=== PATIENT | male | born 1945 | race Caucasian/White ===

== ENCOUNTER 2019-05-27 08:26 | Emergency (ER) | payer MEDICARE ==
[~2019-05-27] VITALS: Ht 182.9 cm; Wt 73.4 kg
[2019-05-27 08:59] LABS: ABSOLUTE BASOPHILS 0.1 thou/uL (0.0-0.2); ABSOLUTE EOSINOPHILS 0.3 thou/uL (0.0-0.7); ABSOLUTE LYMPHOCYTES 1.7 thou/uL (0.8-5.3); ABSOLUTE MONOCYTES 0.5 thou/uL (0.0-1.2); ABSOLUTE NEUTROPHILS 4.5 thou/uL (1.6-8.1); BASOPHILS 1.2 %; HEMATOCRIT 42.7 % (42.0-52.0); HEMOGLOBIN 14.5 gm/dL (14.0-18.0); LYMPHOCYTES 24.8 %; MCH 30.4 pg (26.0-34.0); MCV 89.2 fL (80.0-100.0); MONOCYTES 6.6 %; MPV 6.8 fl. (7.2-11.1); NUCLEATED RBCS 0 /100WBC; PLATELET COUNT* 191 thou/uL (150-400); POLYS 63.4 %; RBC 4.79 mil/uL (4.50-6.00); RDW-CV 15.7 % (10.5-14.5)
[2019-05-27] MEDS ORDERED: CARVEDILOL12.5 MG PO (09:16)
[2019-05-27] MEDS ORDERED: AMIODARONE HCL400 MG PO (09:16)
[2019-05-27] MEDS ORDERED: KEPPRA1000 MG PO (09:16)
[2019-05-27] MEDS ORDERED: VITAMIN B-1100 M1 PO (09:17)
[2019-05-27] MEDS ORDERED: FOLIC ACID1 MG PO (09:17)
[2019-05-27 09:21] LABS: CALCIUM 8.6 mg/dL (8.5-10.1); CREATININE 1.1 mg/dL (0.6-1.3)
[2019-05-27 09:25] LABS: ALBUMIN 3.7 g/dL (3.4-5.0); TOTAL BILIRUBIN 0.7 mg/dL (<0.1-1.0); TOTAL PROTEIN 7.2 g/dL (6.4-8.2)
[2019-05-27 09:52] LABS: APTT 27.8 Seconds (25.0-31.3); PROTIME 10.7 Seconds (9.20-11.50)
--- NOTE | 2019-05-27 12:38 | EKG ---
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: : 1945 Requested By: Vy Daugherty Order Number: [id number] MD: Topher Marcelino Measurements Intervals [place] Rate: 68 P: 38 GA: 197 QRS: -38 QRSD: 107 T: -7 QT: 416 QTc: 443 Interpretive Statements Sinus rhythm Left ventricular hypertrophy Borderline T abnormalities, lateral leads No previous ECG available for comparison Electronically Signed On 05-27-2019 12:37:35 WHARF LABORER by Topher Marcelino [email or web address] <ELECTRONICALLY SIGNED> By: Topher Marcelino MD, [facility] 05/27/19 1237 0909 8 Topher Marcelino MD, FACC /EPI
[2019-05-27 13:06] VITALS: BP 171/103
--- NOTE | 2019-05-27 17:20 | EKG ---
[place] [address] ELECTROCARDIOGRAM REPORT Name: BAY CLEVELAND [id number] Admission: 05/27/19 Attend Phys: Discharge: 05/27/19 Date of : 49 Report #: [id number] THIS REPORT FOR: //name// [facility] ED Test Date: 2019-05-27 Test Time: 13:05:34 Pat Name: BAY CLEVELAND Department: Room: Gender: M Buccaro: TOM : 1945 Requested By: Vy Daugherty Order Number: [id number] MD: Zhang Toussaint Measurements Intervals [place] Rate: 76 P: 39 NH: 204 QRS: -37 QRSD: 111 T: 39 QT: 427 QTc: 481 Interpretive Statements Sinus rhythm Ventricular premature complex Left ventricular hypertrophy Borderline prolonged QT interval Compared to ECG 05/27/2019 09:09:27 Ventricular premature complex(es) now present Electronically Signed On 05-27-2019 17:19:37 STATIONARY ENGINEER by Zhang Toussaint [email or web address] <ELECTRONICALLY SIGNED> By: Zhang Toussaint MD, [facility] 05/27/19 1719 1305 1305 Zhang Toussaint MD, FAC /EPI
--- NOTE | 2019-06-07 11:51 | CON ---
[address] [address] CONSULTATION Name: BAY CLEVELAND Room: [facility] SHEILA Gutierres#: [id number] Admission: 05/27/19 Attend Phys: Discharge: 05/27/19 Date of : 49 Report #: [id number] THIS REPORT FOR: //name// CC: Chanel Daugherty DATE OF SERVICE: 05/27/2019 HISTORY OF PRESENT ILLNESS: This is a 73-year-old male patient who was evaluated by me as a stroke protocol. The provides history. She gives a history that the patient was sitting. He went limp and did not fall down from the chair and had a jerking movement on the left side. The patient has a pretty involved history. He was in . He developed subacute bacterial endocarditis. Subsequently, he bled into the brain. They did not do any surgery. They did not do any coiling. He may have had another bleed later on. He became paralyzed on the left side. Then, he made a reasonable recovery, it looks like. After the episode today, he has been weak on the left side and he has some nystagmus. He was on Keppra, but he has not taken the morning dose of Keppra yet. REVIEW OF SYSTEMS: Indicated that this patient had a pretty eventful 2019 as far as medical problem is concerned. This patient first developed subacute bacterial endocarditis. Then, he developed mycotic aneurysm. Then, he developed intracerebral bleed. Then, he had petit mal seizure. Then he had a grand mal seizure. Then, he was put on Keppra and he continued to be on Keppra. One of his valve was repaired and he was put on Coumadin for some time, but subsequently Coumadin was discontinued. A 14-point review of system was carried out from the and this was his relevant 14-point review of system. PAST MEDICAL HISTORY: Positive for intracranial bleed. FAMILY HISTORY: Negative for any early age stroke. SOCIAL HISTORY: He is . His was here and she provided most of the history. PHYSICAL EXAMINATION: Limited. He was not much responsive. He can open his eyes. He did not follow commands for me. His speech was not understandable. He did not move the left side. He moved the right side. He is looking towards the left. He is a well-developed individual. He does not have any dysmorphic features of eyes, ears and face. His blood pressure is 171/103, respiration is 16, pulse is 80, temperature is 98.8. He was not in any respiratory distress. His pulses are palpable.. LABORATORY DATA: His WBC count is 7.0 and sodium and potassium is normal. He underwent a CT of the head and subsequently underwent [place] [address] CONSULTATION Name: BAY CLEVELAND Room: [facility] Nenita#: [id number] Admission: 05/27/19 Attend Phys: Discharge: 05/27/19 Date of : 49 Report #: [id number] any blood clot. IMPRESSION: It would appear that this patient had a seizure. He has a prior set up for seizure because of his bleed. He does have a prior history of seizure. His dose was increased to 1250 p.o. b.i.d. He may have to be on some stronger anticonvulsant and just Keppra, which is on. The problem is the says that [facility] is not part of the network. She wanted the patient to be transferred to . I told her the potential complication which can occur and she understands and she wants this to be there and I think that is reasonable. I talked to Emergency Room physician and told her to give IV Keppra since he has not taken that dose today. I will not start him on any Vimpat or any other medication here. From all the workup we have done, there is no evidence for cerebrovascular accident. Even if it is cerebrovascular accident, he is not a candidate for TPA because of prior bleed and he is not a candidate for thrombectomy because no thrombus has been found. All of it was discussed with the in detail. Thank you very much for this referral. <ELECTRONICALLY SIGNED> By: Tyrell Snow MD 06/07/19 1151 99 [id number] Snow MD /nt
== END 2019-05-27 13:06 | disposition short-term general hospital (02) ==
LOC: M.ERS 08:26
PROVIDERS: Personal Emergency Response Attendant
DX: I63.9 Cerebral infarction, unspecified (principal); R56.9 Unspecified convulsions

== ENCOUNTER 2020-02-27 08:16 | Emergency (ER) | payer MEDICARE ==
[~2020-02-27] VITALS: Ht 182.9 cm; Wt 72.1 kg
[~2020-02-27 08:16] MED LIST: AMIODARONE HCL400 MG PO; CARVEDILOL12.5 MG PO; FOLIC ACID1 MG PO; KEPPRA1000 MG PO; VITAMIN B-1100 M1 PO
[2020-02-27] MEDS ORDERED: CARVEDILOL25 MG PO (09:04)
[2020-02-27] MEDS ORDERED: PACERONE200 MG PO (09:04)
[2020-02-27] MEDS ORDERED: KEPPRA1000 MG PO (09:05)
[2020-02-27] MEDS ORDERED: REMERON15 M2 PO (09:05)
[2020-02-27] MEDS ORDERED: LISINOPRIL20 MG PO (09:05)
[2020-02-27] MEDS ORDERED: ZOCOR 20 MG TAB20 M1 PO (09:06)
[2020-02-27] MEDS ORDERED: PROZAC20 MG PO (09:06)
[2020-02-27] MEDS ORDERED: FLOMAX0.4 MG PO (09:06)
[2020-02-27 09:21] LABS: ABSOLUTE BASOPHILS 0.1 thou/uL (0.0-0.2); ABSOLUTE EOSINOPHILS 0.2 thou/uL (0.0-0.7); ABSOLUTE LYMPHOCYTES 1.2 thou/uL (0.8-5.3); ABSOLUTE MONOCYTES 0.3 thou/uL (0.0-1.2); ABSOLUTE NEUTROPHILS 5.4 thou/uL (1.6-8.1); BASOPHILS 0.8 %; EOSINOPHILS 2.6 %; HEMOGLOBIN 14.5 gm/dL (14.0-18.0); MCHC 35.2 g/dL (28.0-37.0); MCV 93.7 fL (80.0-100.0); MONOCYTES 4.7 %; MPV 6.4 fl. (7.2-11.1); NUCLEATED RBCS 0 /100WBC; PLATELET COUNT* 191 thou/uL (150-400); POLYS 74.9 %; RBC 4.38 mil/uL (4.50-6.00); WBC 7.2 thou/uL (4.0-11.0)
[2020-02-27 09:31] LABS: CALCIUM 8.7 mg/dL (8.5-10.1); CREATININE 1.1 mg/dL (0.6-1.3); POTASSIUM 4.2 mmol/L (3.5-5.1)
[2020-02-27 09:32] LABS: PROTIME 10.7 Seconds (9.20-11.50)
[2020-02-27 09:36] LABS: TOTAL BILIRUBIN 0.9 mg/dL (<0.1-1.0); TOTAL PROTEIN 7.3 g/dL (6.4-8.2)
[2020-02-27 10:05] VITALS: BP 142/79
--- NOTE | 2020-02-28 09:35 | EKG ---
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: : 1945 Requested By: Michael Shi Order Number: [id number] MD: Man Treadwell Measurements Intervals [place] Rate: 72 P: 27 CA: 234 QRS: -45 QRSD: 128 T: 80 QT: 386 QTc: 423 Interpretive Statements Sinus rhythm Prolonged CA interval inferior infarction old anterior infarction old Compared to ECG 05/27/2019 13:05:34 First degree AV block now present Ventricular premature complex(es) no longer present Electronically Signed On 02-28-2020 9:34:58 CDT by Man Treadwell [email or web address] <ELECTRONICALLY SIGNED> By: Man Treadwell MD, FACC 02/28/20 0934 0 0 Man Treadwell MD, [facility]IN [facility] /EPI
== END 2020-02-27 10:25 | disposition short-term general hospital (02) ==
LOC: M.ERS 08:16
PROVIDERS: Emergency Medicine
DX: S06.300A Unspecified focal traumatic brain injury without loss of consciousness, initial encounter (principal); Z20.828 Contact with and (suspected) exposure to other viral communicable diseases; Z86.73 Personal history of transient ischemic attack (TIA), and cerebral infarction without residual deficits; X58.XXXA Exposure to other specified factors, initial encounter; Y93.89 Activity, other specified; Y92.89 Other specified places as the place of occurrence of the external cause; Y99.8 Other external cause status

== ENCOUNTER 2020-09-27 10:48 | Inpatient (IN) | payer MEDICARE ==
[~2020-09-27] VITALS: Ht 188 cm; Wt 75.7 kg
[2020-09-27] VITALS (11 sets, daily range): BP systolic 82–179; BP diastolic 42–112
--- NOTE | ~2020-09-27 | CON ---
[address] [address] CONSULTATION Name: BAY CLEVELAND Room: [address] IN M.R.#: [id number] Admission: 09/27/20 Attend Phys: Rohan Sheets Discharge: Date of : 49 Report #: [id number] THIS REPORT FOR: cc: Chanel Argueta MD, Emily G. MD Khosla,Tyrell Post MD ~ DOC #: [id number] Tyrell Snow MD DATE OF CONSULTATION: 09/27/2020 HISTORY OF PRESENT ILLNESS: This is a 74-year-old male patient with a complicated history who was seen in emergency room and I discussed the patient multiple times with the emergency room physician. I talked to the nurse looking after this patient. I had a long discussion with the patient's . I went and reviewed the patient's scanning with radiologist and I talked to MRI as well as EEG. The history I get in this patient is that he had a sudden onset of the symptoms that he cannot speak. This happened suddenly. He has some tremor in the right upper extremity and he developed pretty significant shaking in the left upper extremity during this episode. He had a gaze preference towards the left when he came in, but by the time I saw him, he was intubated and he is on a vent. Before seeing him, I talked to multiple peoples including the radiologist. I have tried to see him earlier also, but he was gone for a CT angiogram and therefore, I talked to other people and saw him after he was intubated. His history is complicated. He had subacute bacterial endocarditis, but he was in [facility]. I do not have any records from there and I have asked the emergency room physician and he is trying to get those records from the [facility]. This patient had an intracerebral bleed on the right side and the second intracerebral bleed on the left side. It is not clear what the cause of the bleed were on either side. This happened in relation to subacute endocarditis. He was in atrial fibrillation at that time and he has some device in his heart and MRI does not know if it is compatible with MRI or not. I suspect he may have had that device put in because they may have considered that he is too high risk for chronic anticoagulation. His memory initially was okay, but from the last several weeks to months, his memory is progressively decreasing according to his . Because of the time sensitive condition, that is all the history I could get. The patient's examination was limited, but his pupils are asymmetrical. think it is new. I can tell anything further because this patient is intubated now and he is completely unresponsive. His blood pressure is somewhat high like 170-180. Multiple things were considered in this patient. We considered the diagnosis of stroke and I considered TPA, but this patient has [place] [address] CONSULTATION Name: BAY CLEVELAND Room: [address] IN [facility].#: [id number] Admission: 09/27/20 Attend Phys: Rohan Sheets Discharge: Date of : 49 Report #: [id number] by history, intracerebral hemorrhage, even one is a lifelong contraindication for TPA. I still discussed that with the patient's and offered her that, but ultimately it was her decision not to give TPA and I agree with it because he had two bleeds, which are lifetime contraindication for TPA. We will try to see if he is a thrombectomy candidate, but I reviewed CT angiogram with the radiologist and there is no thrombus. There is no embolus, though he is not an interventional candidate. Then, I ordered a stat MRI and I talked to them. They were going to do that in spite of the patient's intubation, but he has some device in his heart and they have talked to the radiologist and until they can find out that it is compatible with MRI, they will not do an MRI and we have to hold that MRI. I talked to water treatment technician asked him to do this EEG stat on him to see if we can chicken picker some seizure activity. I asked the ER doctor to go and give Keppra 1000 mg to this gentleman. I discussed the code status with the patient's . He has extensive strokes in the brain. He may have had another stroke or seizure and his quality of the life was deteriorating even before. She said she wants to keep him full code for the time being, but she also says that I will keep him full code only once. I am not sure what she means by that, but to me it looks like she wants to keep him full code for a little while and if he does not show any improvement, then she will make it no code. I spent more than 70 minutes of time taking care of this patient today and majority was spent counseling and coordinating as summarized above. We will see the patient again after the EEG. MD YOUSIF Chin/BAKARI By: 1302 1325Tyrell Snow MD /nt
--- NOTE | ~2020-09-27 | EEG ---
[facility] [address] [place] [address] EEG STUDY REPORT Name: BAY CLEVELAND Room: [address] IN M.R.#: [id number] Admission: 09/27/20 Attend Phys: Rohan Sheets Discharge: Date of : 49 Report #: [id number] THIS REPORT FOR: cc: Chanel Argueta MD, Emily G. MD Khosla,Tyrell Post MD ~ DOC #: [id number] Tyrell Snow MD DATE OF SERVICE: 09/27/2020 This patient's EEG is being done to evaluate the patient for seizure. EEG was done by placing the electrodes by standard 10-20 system of electrode placement. Both referential and sequential montages were used for recording. Background activity in this patient's EEG is up to 8-9 Hz and 20 microvolt. Photic stimulation is unremarkable. The patient is sedated on propofol. No active epileptiform activity was noticed during this record. IMPRESSION: This patient's EEG is intermixed with moderate amount of slowing. There is a nonspecific finding, which can occur with dementia, encephalopathy, effect of psychotropic medication, etc. Thank you very much for this referral and if you have any questions, please feel free to contact me. Tyrell Snow MD PK/ANI By: 1703 1730Tyrell Snow MD /jackeline
[~2020-09-27 10:48] MED LIST changes: +CARVEDILOL25 MG PO; +FLOMAX0.4 MG PO; +LISINOPRIL20 MG PO; +PACERONE200 MG PO; +PROZAC20 MG PO; +REMERON15 M2 PO; +ZOCOR 20 MG TAB20 M1 PO
[2020-09-27 11:33] LABS: HEMATOCRIT 43.9 % (42.0-52.0); HEMOGLOBIN 14.8 gm/dL (14.0-18.0); MCH 32.4 pg (26.0-34.0); MCHC 33.8 g/dL (28.0-37.0); MCV 95.9 fL (80.0-100.0); MPV 6.5 fl. (7.2-11.1); RBC 4.58 mil/uL (4.50-6.00); RDW-CV 13.5 % (10.5-14.5); WBC 8.5 thou/uL (4.0-11.0)
[2020-09-27 11:38] LABS: CALCIUM 8.8 mg/dL (8.5-10.1); CREATININE 1.1 mg/dL (0.6-1.3); POTASSIUM 3.9 mmol/L (3.5-5.1)
[2020-09-27 11:43] LABS: ALBUMIN 4.1 g/dL (3.4-5.0); TOTAL BILIRUBIN 0.9 mg/dL (<0.1-1.0)
[2020-09-27 11:44] LABS: APTT 25.4 Seconds (25.0-31.3); PROTIME 10.8 Seconds (9.20-11.50)
[2020-09-27 12:00] LABS: URINE BILIRUBIN NEGATIVE (Negative); URINE BLOOD 2+ (Negative); URINE CLARITY CLEAR; URINE COLOR YELLOW; URINE GLUCOSE-RANDOM NEGATIVE (Negative); URINE KETONES NEGATIVE (Negative); URINE LEUKOCYTES NEGATIVE (Negative); URINE NITRITE NEGATIVE (Negative); URINE PROTEIN TRACE (Negative)
[2020-09-27 12:10] LABS: SQUAMOUS 0-3 Few /LPF (0-3)
[2020-09-27 12:11] LABS: BACTERIA 1-9 Few /HPF (None Seen); CASTS None Seen /LPF (None Seen); CRYSTALS None Seen /LPF (None Seen); MUCUS None Seen strn/LPF (None Seen); URINE WBC None Seen /HPF (0-5)
--- NOTE | 2020-09-27 14:04 | EKG ---
[place] [address] ELECTROCARDIOGRAM REPORT Name: BAY CLEVELAND Room: [place] [address] ADM IN [facility].#: [id number] Admission: 09/27/20 Attend Phys: Harlan Jones Discharge: Date of : 49 Date of Service: 09/27/20 1119 Report #: [id number] THIS REPORT FOR: //name// [facility] ED Test Date: 2020-09-27 Test Time: 11:19:09 Pat Name: BAY CLEVELAND Department: Room: 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: BILL : 1945 Requested By: Star Washington Order Number: [id number] MD: Man Treadwell Measurements Intervals [place] Rate: 61 P: MT: QRS: -40 QRSD: 126 T: 60 QT: 476 QTc: 480 Interpretive Statements sinus rhythm with first degree AV block artifact noted Nonspecific IVCD with LAD Left ventricular hypertrophy Inferior infarct, old Compared to ECG 02/27/2020 09:21:23 Myocardial infarct finding still present Electronically Signed On 09-27-2020 14:04:25 CDT by Man Treadwell [email or web address] <ELECTRONICALLY SIGNED> By: Man Treadwell MD, [facility] 09/27/20 1404 1119 1119 Man Treadwell MD, [facility] /EPI
[2020-09-27 14:43] LABS: BE 2.7 mmol/L (-2 to +3); PCO2 36.1 mmHg (35.0-45.0); pH 7.476 (7.340-7.450)
--- NOTE | 2020-09-27 16:14 | 2DMMODE ---
[place] [address] 2 D/M-MODE ECHOCARDIOGRAM Name: BAY CLEVELAND Room: [address] IN [facility]#: [id number] Admission: 09/27/20 Attend Phys: Harlan Jones Discharge: Date of : 49 Date of Service: 09/27/20 1613 Report #: [id number] THIS REPORT FOR: cc: Chanel Argueta MD, Emily G. MD Blick,Man Zimmerman MD [facility] ~ APPROVED REPORT Study performed: 09/27/2020 15:32:21 EXAM: Comprehensive 2D, Doppler, and color-flow Echocardiogram Patient Location: In-Patient Room #: 004 Status: routine BSA: 2.02 HR: 65 bpm BP: 146/65 mmHg Rhythm: NSR Other Information Study Quality: Good Indications CVA/TIA Dyspnea Echo Enhancing Agent Indication: Rule out Shunt Agent(s) / Amount(s) Used: Agitated Saline 10 cc 2D Dimensions IVSd: 10.04 (7-11mm) LVOT Diam: 22.94 (18-24mm) LVDd: 50.96 mm PWd: 8.11 (7-11mm) Ascending Ao: 35.82 (22-36mm) LVDs: 29.74 (25-40mm) Aortic Root: 37.44 mm Volumes Left Atrial Volume (Systole) LA ESV Index: 20.10 mL/m2 Aortic Valve AoV Peak Mele.: 1.14 m/s AO Peak Gr.: 5.17 mmHg LVOT Max P.[address] [address] 2 D/M-MODE ECHOCARDIOGRAM Name: BAY CLEVELAND Room: [address]#: [id number] Admission: 09/27/20 Attend Phys: Harlan Jones Discharge: Date of : 49 Date of Service: 09/27/20 1613 Report #: [id number] Mean Gr.: 2.73 mmHg LVOT Mean P.99 mmHg LVOT Max V: 0.70 m/s AO V2 VTI: 20.98 cm LVOT Mean V: 0.46 m/s ADALBERTO (VTI): 3.16 cm2 LVOT V1 VTI: 16.04 cm AI [place]: 2.36 m/s2 AI PHT: 586.84 ms Mitral Valve E/A Ratio: 1.23 MV Decel. Time: 229.93 ms MV E Max Mele.: 0.69 m/s MV PHT: 66.68 ms MVA (PHT): 3.30 cm2 TDI E/Lateral E': 5.31 E/Medial E': 9.86 Medial E' Mele.: 0.07 m/s Lateral E' Mele.: 0.13 m/s Pulmonary Valve PV Peak Mele.: 0.73 m/s PV Peak Gr.: 2.13 mmHg Tricuspid Valve RAP Estimate: 5.00 mmHg TR Peak Gr.: 22.21 mmHg RVSP: 27.00 mmHg PA Pressure: 27.00 mmHg Left Ventricle The left ventricle is normal size. There is normal LV segmental wall motion. There is normal left ventricular wall thickness. Left ventricular systolic function is normal. The left ventricular ejection fraction is within the normal range. LVEF is 55-60%. The left ventricular diastolic function is normal. Right Ventricle The right ventricle is normal size. The right ventricular systolic function is normal. Atria The left atrium size is normal. The interatrial septum is intact with no evidence for an atrial septal defect. The right atrium size is normal. Aortic Valve Mild aortic valve sclerosis. Moderate aortic regurgitation. There is [place] [address] 2 D/M-MODE ECHOCARDIOGRAM Name: BAY CLEVELAND Room: [address] IN [facility]#: [id number] Admission: 09/27/20 Attend Phys: Harlan Jones Discharge: Date of : 49 Date of Service: 09/27/20 1613 Report #: [id number] Mitral Valve History of mitral valve repair. Mild mitral regurgitation. No evidence of mitral valve stenosis. Tricuspid Valve The tricuspid valve is normal in structure. Trace tricuspid regurgitation. No pulmonary hypertension. Pulmonic Valve The pulmonary valve is normal in structure. There is no pulmonic valvular regurgitation. Great Vessels The aortic root is normal in size. IVC is normal in size and collapses >50% with inspiration. Pericardium There is no pericardial effusion. <Conclusion> LVEF is 55-60%. Mild aortic valve sclerosis. Moderate aortic regurgitation. History of mitral valve repair. Mild mitral regurgitation. The interatrial septum is intact with no evidence for an atrial septal defect. <ELECTRONICALLY SIGNED> By: Man Treadwell MD, FACC 09/27/20 1613 1613 161 Man Treadwell MD, FACC /INF
[2020-09-28] VITALS (49 sets, daily range): BP systolic 73–174; BP diastolic 39–90
[2020-09-28 04:35] LABS: CALCIUM 8.4 mg/dL (8.5-10.1); CREATININE 1.3 mg/dL (0.6-1.3)
[2020-09-28 04:50] LABS: POTASSIUM 2.8 mmol/L (3.5-5.1)
[2020-09-28 06:29] LABS: HEMATOCRIT 41.6 % (42.0-52.0); HEMOGLOBIN 14.2 gm/dL (14.0-18.0); MCHC 34.1 g/dL (28.0-37.0); MCV 93.9 fL (80.0-100.0); MPV 7.1 fl. (7.2-11.1); RBC 4.43 mil/uL (4.50-6.00); RDW-CV 13.6 % (10.5-14.5); WBC 17.2 thou/uL (4.0-11.0)
[2020-09-28 10:17] LABS: BE -0.1 mmol/L (-2 to +3); PCO2 38.7 mmHg (35.0-45.0); PO2 106.3 mmHg (75.0-100.0); pH 7.414 (7.340-7.450)
[2020-09-28 17:23] LABS: CALCIUM 8.1 mg/dL (8.5-10.1); CREATININE 1.1 mg/dL (0.6-1.3); MAGNESIUM 1.9 mg/dL (1.8-2.4); POTASSIUM 3.8 mmol/L (3.5-5.1)
[2020-09-29] VITALS (24 sets, daily range): BP systolic 97–164; BP diastolic 45–92
[2020-09-29 03:58] LABS: ABSOLUTE BASOPHILS 0.1 thou/uL (0.0-0.2); ABSOLUTE EOSINOPHILS 0.1 thou/uL (0.0-0.7); ABSOLUTE MONOCYTES 0.8 thou/uL (0.0-1.2); ABSOLUTE NEUTROPHILS 6.9 thou/uL (1.6-8.1); BASOPHILS 0.6 %; EOSINOPHILS 1.5 %; HEMOGLOBIN 12.5 gm/dL (14.0-18.0); LYMPHOCYTES 11.8 %; MCH 32.3 pg (26.0-34.0); MCHC 33.7 g/dL (28.0-37.0); MONOCYTES 8.5 %; MPV 6.3 fl. (7.2-11.1); NUCLEATED RBCS 0 /100WBC; PLATELET COUNT* 145 thou/uL (150-400); POLYS 77.6 %; RBC 3.85 mil/uL (4.50-6.00); RDW-CV 13.8 % (10.5-14.5); WBC 8.9 thou/uL (4.0-11.0)
[2020-09-29 04:15] LABS: ALBUMIN 2.8 g/dL (3.4-5.0); CREATININE 1.1 mg/dL (0.6-1.3); POTASSIUM 3.8 mmol/L (3.5-5.1); TOTAL BILIRUBIN 0.7 mg/dL (<0.1-1.0); TOTAL PROTEIN 6.2 g/dL (6.4-8.2)
[2020-09-29 04:16] LABS: CHOLESTEROL 124 mg/dL (<200); HDL CHOLESTEROL 67 mg/dL (>40); LDL CHOLESTEROL 42 mg/dL (<100); TC:HDL 1.9 Ratio (Not establshd); TRIGLYCERIDE 77 mg/dL (<150); VLDL 15 mg/dL (<40)
[2020-09-29 04:54] LABS: SERUM ASSESSMENT CLEAR
[2020-09-30 00:07] VITALS: BP 145/67
[2020-09-30 02:06] LABS: GLYCOHEMOGLOBIN (HGB A1C) 5.8 % (4.8-5.6)
[2020-09-30 04:18] VITALS: BP 137/74
[2020-09-30 08:00] VITALS: BP 164/76
[2020-09-30 12:00] VITALS: BP 150/67
[2020-09-30] MEDS ORDERED: ASA81BEC PO (13:13)
[2020-09-30] MEDS ORDERED: ZOCOR 20 MG TAB20 M1 PO (13:13)
[2020-09-30] MEDS ORDERED: AMOX TR-K CLV1 EAC4 PO (13:13)
[2020-09-30] MEDS ORDERED: LAMICTAL100 MG PO (13:13)
[2020-09-30 13:28] VITALS: BP 150/67
--- NOTE | 2020-10-03 14:41 | CON ---
[address] [address] CONSULTATION Name: [place] Room: [address] IN .R.#: [id number] Admission: 09/27/20 Attend Phys: Rohan Sheets Discharge: 09/30/20 Date of : 49 Report #: [id number] THIS REPORT FOR: cc: Chanel Argueta MD, Emily G. MD Pervez,Mook BELL ~ DOC #: [id number] Mook Seth MD DATE OF CONSULTATION: 09/28/2020 REQUESTING PHYSICIAN: Harlan Jones DO REASON FOR CONSULTATION: Ventilator management. HISTORY OF PRESENT ILLNESS: A 74-year-old gentleman. He does not have a previous history of smoking. 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 He also does have a Watchman device. The patient was admitted yesterday. Presentation was with acute complaints as noted below. There is copious amount of thick yellow secretions in his endotracheal tube and therefore, I specifically asked his about whether he was sick prior to the events yesterday. She says that he was in fact doing well and there were no respiratory complaints prior. The patient is reported to have been dizzy, having difficulty speaking. He is reported also to had altered mental status. There was also suspicion that he may have had a seizure. He was endotracheally intubated for airway protection. I do not see any documented history of vomiting or aspiration. He had a CT head as well as CTA head performed last night. This did not show any acute findings. His chest x-ray do not show any significant infiltrates or pulmonary vascular congestion and his potassium was critically low at 2.8 this morning. His creatinine initially was normal at 1.1. It was 1.3 this morning and therefore rising, although he is on IV fluids at 80. We kept him on assist control mode of ventilation, overnight, he was easy to ventilate on 40% FiO2, 5 of PEEP. This morning, we have placed him on a weaning trial. So far, he is doing well on the weaning trial. We are also replacing his potassium. We are evaluating for possible extubation. The patient is awake at this time. He is answering to the negative for 12 questions for review of systems except as above; however, some of the review of systems was also obtained from the patient's , the patient's ability to respond to questions; however, is limited on account of the fact that he is endotracheally intubated. PAST MEDICAL HISTORY: Intracerebral hemorrhage x2, endocarditis requiring mitral valve repair, atrial fibrillation, has had a Watchman procedure performed in the past, he just had an echocardiogram performed, which shows a normal left ventricular ejection fraction with a pulmonary artery systolic of 25 with only mild mitral regurgitation, history of seizures, hyperlipidemia, prostatism, [place] [address] CONSULTATION Name: B[place] Room: [address]#: [id number] Admission: 09/27/20 Attend Phys: Rohan Sheets Discharge: 09/30/20 Date of : 49 Report #: [id number] possible history of hypertension. He is on amiodarone at home. SOCIAL HISTORY: Lifetime nonsmoker. No known history of heavy alcohol use or illegal drug use. MEDICATIONS: List in [facility] reviewed. Home medication list in [facility] reviewed. Note that he is on amiodarone at home. Note that he is not on long-term anticoagulation. FAMILY HISTORY: No pertinent family history is known at this time. PHYSICAL EXAMINATION: GENERAL: We have just held his propofol. He is fully awake at this time. VITAL SIGNS: He has a pulse of 60 and a blood pressure of 137/86. He is on a CPAP of 5, pressure support of 5, tidal volume of 450-500, respiratory rate is around 16-18. He is on 40% FiO2. He is saturating around 97-98%. There is low-grade elevation in temperature this morning to 37.8. Now 37.2. There is copious amount of thick yellow secretions in his ET tube. HEENT: Normocephalic and atraumatic. NECK: Does not show raised JVP, asymmetry, mass or lymph nodes. CHEST: Symmetrical expansion on inspection and palpation. On auscultation, chest is clear. HEART: Irregular, but there is no murmur. ABDOMEN: Soft and nontender. LOWER EXTREMITIES: Show no edema and no calf tenderness. SKIN: Dry and intact. LABORATORY DATA: I obtained a chest x-ray now and compared with a chest x-ray done yesterday. Endotracheal tube was in good position. There is raised right hemidiaphragm, but I do not identify any increased pulmonary vascular congestion or infiltrates. The patient's lab work, which does show critical low potassium, which has been replaced and [facility] reviewed. Mild elevation in creatinine noted. COVID-19 screen is negative. Arterial blood gas from yesterday in [facility] reviewed, shows respiratory alkalosis. The patient's potassium at that time was normal. A repeat arterial blood gas now is pending. ASSESSMENT AND PLAN: 1. Acute respiratory failure secondary to altered mental status. The patient is now fully awake and is doing well on the weaning trial. I will reassess in the next few minutes and then consider extubating him. 2. Acute bacterial bronchitis as above. There are copious thick yellow secretions in his endotracheal tube. The patient, however, does not have any identifiable infiltrates on chest x-ray. He also does not have a history of respiratory complaints prior to him developing symptoms yesterday[place] [address] CONSULTATION Name: [place] Room: [address]#: [id number] Admission: 09/27/20 Attend Phys: Rohan Sheets Discharge: 09/30/20 Date of : 49 Report #: [id number] more history once he is extubated, it would be possible that he vomited and aspirated at some point during the events yesterday, but the history is not available. Considering this, I will go ahead and start him on Unasyn after sending off a sputum culture. Tentatively, I will plan to continue antibiotics for about a week. However, if he does well, then I will switch this over to oral Augmentin, also will coordinate with the neurology service whenever he goes for another CT head, I may consider obtaining a CT chest without contrast as well and see if there are changes consistent with aspiration. We will also give him albuterol to assist with mucus clearance. 3. Altered mental status/possible seizures/possible stroke. Neurology Service is on the case. We will be cautious in allowing him oral diet once he is extubated. If he remains fully awake, then we will ask speech to evaluate. 4. Mild renal insufficiency/hypokalemia. Considering that he may have had a stroke, I agree with continuing with normal saline. We will keep him well hydrated. I do not see any evidence of pulmonary vascular congestion on his chest x-ray. His potassium is being replaced. I ordered repeat labs. We will reassess this evening. 5. Past medical history of atrial fibrillation, status post Watchman procedure. Note that the patient is on amiodarone and he is not on long-term anticoagulation. 6. Past medical history of endocarditis requiring mitral valve repair. 7. DVT prophylaxis. I would recommend starting Lovenox in the prophylactic dose if okay with the neurology service. The patient is critically ill at this time. Total time spent providing critical care to this patient today is around 48 minutes. MD KAREN García/HUI/FABIAN <ELECTRONICALLY SIGNED> By: Mook Seth MD 10/03/20 [id number] Seth MD /nt
== END 2020-09-30 13:40 | disposition home or self-care (01) | DRG 208 ==
LOC: M.ERS 10:48 → M.TBA-ER 13:15 → M.ICU 13:15 → M.2W 09-29 18:27
PROVIDERS: Emergency Medicine; Family Medicine; Internal Medicine; Internal Medicine Critical Care Medicine; ADMIT Internal Medicine; ATTEND Internal Medicine
PROC: 0BH17EZ Insertion of Endotracheal Airway into Trachea, Via Natural or Artificial Opening (ICD-10-PCS; principal; 2020-09-27)
PROC: 5A1935Z Respiratory Ventilation, Less than 24 Consecutive Hours (ICD-10-PCS; principal; 2020-09-27)
DX: J96.01 Acute respiratory failure with hypoxia (principal); I63.9 Cerebral infarction, unspecified; E87.1 Hypo-osmolality and hyponatremia; G40.109 Localization-related (focal) (partial) symptomatic epilepsy and epileptic syndromes with simple partial seizures, not intractable, without status epilepticus; I95.9 Hypotension, unspecified; E87.6 Hypokalemia; J20.9 Acute bronchitis, unspecified; N28.9 Disorder of kidney and ureter, unspecified; I48.91 Unspecified atrial fibrillation; Z20.822 Contact with and (suspected) exposure to COVID-19; Z86.73 Personal history of transient ischemic attack (TIA), and cerebral infarction without residual deficits; Z79.899 Other long term (current) drug therapy